=== PATIENT | male | born 1970 | race Caucasian/White ===

== ENCOUNTER → 2017-04-24 | Outpatient (CLI) | payer BC ==
--- NOTE | 2017-04-24 15:02 | DIAGNOSTIC IMAGING REPORT ---
RIGHT TIBIA/FIBULA 2 VIEWS CLINICAL HISTORY: Right lower leg pain status post injury. COMPARISON: None FINDINGS: No acute fracture of the right tibia or fibula is identified. There are a few soft tissue calcifications which are chronic and of no clinical significance. There is mild soft tissue swelling of the right lower leg. There is extensive posterior calcaneal spurring. IMPRESSION: 1. No acute fracture of the right tibia or fibula. 2. Right lower leg soft tissue swelling. 3. Extensive posterior calcaneal spurring. Electronically signed by: Kristian Rodriguez M.D. 04/24/2017 3:01 PM Dictated Date/Time: 04/24/2017 2:59 PM
== END | disposition home or self-care (01) ==
LOC: C.RDSM 14:05
PROVIDERS: ATTEND Family Medicine
DX: M79.604 Pain in right leg (principal)

== ENCOUNTER → 2017-09-17 | Outpatient (CLI) | payer BC | END | disposition home or self-care (01) | LOC: C.RDSM 10:48 | PROVIDERS: ATTEND Family Medicine | DX: S89.92XA Unspecified injury of left lower leg, initial encounter (principal); X58.XXXA Exposure to other specified factors, initial encounter ==

== ENCOUNTER → 2017-12-03 | Outpatient (CLI) | payer OTHER ==
[2017-12-03 12:32] LABS: ALBUMIN 3.6 gm/dl (3.4-5.0); ALT/SGPT 32 U/L (12-78); AST/SGOT 21 U/L (15-37); BLOOD UREA NITROGEN 11 mg/dl (7-18); CALCIUM 8.6 mg/dl (8.5-10.1); CARBON DIOXIDE 28 mmol/L (21-32); CHOLESTEROL 152 mg/dl (0-200); CREATININE 0.79 mg/dl (0.60-1.40); GLUCOSE 89 mg/dl (70-99); SODIUM 139 mmol/L (136-145)
[2017-12-03 12:36] LABS: ALKALINE PHOSPHATASE 46 U/L (45-117); LDL CHOLESTEROL CALCULATED 86 mg/dl; TOTAL PROTEIN 7.4 gm/dl (6.4-8.2)
== END | disposition home or self-care (01) ==
LOC: C.LAB1850 10:44
PROVIDERS: ATTEND Nurse Practitioner Family
DX: Z00.00 Encounter for general adult medical examination without abnormal findings (principal); Z13.1 Encounter for screening for diabetes mellitus; Z13.220 Encounter for screening for lipoid disorders